=== PATIENT | male | born 1990 | race Caucasian/White ===

== ENCOUNTER 2016-12-17 18:00 | Emergency (ER) | payer OTHER ==
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
[2016-12-17] MEDS ORDERED: TORADOL IM ONE (19:58)
[2016-12-17 20:19] VITALS: BP 128/79
--- NOTE | 2016-12-18 08:45 | Diag Imaging Result Document ---
PROCEDURE NAME: TRAUMA SHOULDER RIGHT - 12/17/2016 RIGHT SHOULDER: INDICATION: Fall. FINDINGS: No fracture, dislocation, or joint space abnormality is appreciated. IMPRESSION: No acute abnormality of the right shoulder.
--- NOTE | 2016-12-18 09:35 | Diag Imaging Result Document ---
PROCEDURE NAME: WRIST COMPLETE RIGHT - 12/17/2016 RIGHT WRIST, THREE VIEWS: INDICATION: Fall. FINDINGS: No fracture, dislocation, or joint space abnormality is appreciated. IMPRESSION: No acute abnormalities of the right wrist.
== END 2016-12-17 20:35 | disposition home or self-care (01) ==
LOC: P.ED 18:00
DX: S63.501A Unspecified sprain of right wrist, initial encounter (principal); S46.911A Strain of unspecified muscle, fascia and tendon at shoulder and upper arm level, right arm, initial encounter; M25.531 Pain in right wrist; M25.431 Effusion, right wrist; M25.511 Pain in right shoulder; W01.0XXA Fall on same level from slipping, tripping and stumbling without subsequent striking against object, initial encounter; V89.2XXA Person injured in unspecified motor-vehicle accident, traffic, initial encounter
CPT/HCPCS: 96372; J1885